=== PATIENT | male | born 1980 ===

== ENCOUNTER 2017-09-13 18:30 | Emergency (ER) | payer OTHER ==
[~2017-09-13] VITALS: Ht 188 cm; Wt 115.7 kg
[2017-09-13] MEDS ORDERED: NEXIUM 24HR20 M1 (18:46)
== END 2017-09-13 21:07 | disposition home or self-care (01) ==
LOC: ER 18:30
DX: S61.215A Laceration without foreign body of left ring finger without damage to nail, initial encounter (principal); W45.8XXA Other foreign body or object entering through skin, initial encounter; Y93.89 Activity, other specified; Y92.89 Other specified places as the place of occurrence of the external cause; Y99.8 Other external cause status

== ENCOUNTER 2017-12-17 06:43 | Emergency (ER) | payer OTHER ==
[~2017-12-17] VITALS: Ht 188 cm; Wt 105.7 kg
[~2017-12-17 06:43] MED LIST: NEXIUM 24HR20 M1
== END 2017-12-17 13:15 | disposition home or self-care (01) ==
LOC: ER 06:43
DX: K29.70 Gastritis, unspecified, without bleeding (principal)